=== PATIENT | male | born 1960 | race Caucasian/White ===

== ENCOUNTER 2016-09-08 17:33 | Emergency (ER) | payer BC ==
[2016-09-08] MEDS ORDERED: TORAdol 30 mg Injection IM ONE (17:50)
[2016-09-08 17:51] VITALS: BP 152/75; PULSE 76; O2SAT 99
[2016-09-08] MEDS ORDERED: Norflex 60 MG/2 ML IM ONE (17:51)
--- NOTE | 2016-09-08 17:53 | ERPHSYRPT ---
- History of Present Illness Time Seen by Provider: 09/08/16 17:52 Source: patient, family Exam Limitations: no limitations Patient Subjective Stated Complaint: pt states he was playing volleyball in [place] when he felt. something pop in his left lower leg. pt [place] is able to bear. weight on leg but only on the heel of his foot. Triage Nursing Assessment: pt alert warm and dry resp easy non labored. good pulses good. cap refill noted to extremity. Physician History: pt states he was playing volleyball in [place] when he felt something pop in his left lower leg. pt [place] is able to bear weight on leg but only on the heel of his foot. Method of Injury: fell Occurred: just prior to arrival Quality: constant Severity of Pain-Max: moderate Severity of Pain-Current: moderate Lower Extremities Pain: leg: left (calf muscle tenderness), ankle: left ( painful squeeze on achillis tendon left side) Allergies/Adverse Reactions: No Known Drug Allergies Allergy (Unverified 09/08/16 17:39) Hx Tetanus, Diphtheria Vaccination/Date Given: Yes Hx Influenza Vaccination/Date Given: No Hx Pneumococcal Vaccination/Date Given: No Immunizations Up to Date: Yes - Review of Systems Constitutional: No Symptoms Musculoskeletal: Fall, Joint Pain, Other (left calf muscle pain) - Past Medical History Pertinent Past Medical History: Yes Other Medical History: htn - Past Surgical History Past Surgical History: Yes Other Surgical History: neck,carpal tunnel bilateral wrist,nerve release on bilateral elbow. ,appy - Social History Smoking Status: Never smoker Exposure to second hand smoke: No Drug Use: none Patient Lives Alone: No - Nursing Vital Signs Nursing Vital Signs: Initial Vital Signs Temperature 98.0 F Temperature Source Oral Pulse Rate 76 Respiratory Rate 18 Blood Pressure [Right Arm] 152/75 - Physical Exam General Appearance: no apparent distress Legs Exam: left leg: limited range of motion (ankle area), soft tissue tenderness (calf muscles) Ankle Exam: left ankle: limited range of motion (pain ful range of movement), soft tissue tenderness Foot Exam: bilateral foot: non-tender Mental Status Exam: alert, oriented x 3, cooperative Skin Exam: normal color SpO2 Interpretation: normal SpO2: 99 Oxygen Delivery: Room Air - Course Nursing assessment & vital signs reviewed: Yes Ordered Tests: Medication Summary Discontinued Medications Generic Name Dose Route Start Last Admin Trade Name Freq PRN Reason Stop Dose Admin Ketorolac Tromethamine 60 mg 09/08/16 17:50 Toradol 30 Mg Injection IM 09/08/16 17:51 STAT ONE Orphenadrine Citrate 60 mg 09/08/16 17:51 Norflex 60 Mg/2 Ml IM 09/08/16 17:52 STAT ONE - Progress Progress: unchanged Counseled pt/family regarding: diagnosis, need for follow-up - Departure Time of Disposition: 18:02 Departure Disposition: Home Clinical Impression: Achilles tendinitis of left lower extremity Gastrocnemius strain, left Qualifiers: Encounter type: initial encounter Qualified Code(s): S86.112A - Strain of other muscle(s) and tendon(s) of posterior muscle group at lower leg level, left leg, initial encounter Condition: Stable Critical Care Time: No Referrals: DARYN CEDEÑO [Primary Care Provider] - Instructions: Calf Muscle Strain, Achilles Tendinopathy Forms: Work/School Release Form Prescriptions: Cyclobenzaprine HCl 10 mg PO TID #30 tablet Naproxen 375 mg [Naprosyn 375 mg] 375 mg PO Q8H #30 tablet
[2016-09-08] MEDS ORDERED: TORAdol 30 mg Injection ONE ×2 (18:02→18:03)
[2016-09-08] MEDS ORDERED: Norflex 60 MG/2 ML ONE (18:02)
== END 2016-09-08 18:29 | disposition home or self-care (01) ==
LOC: ED 17:33
DX: S86.112A Strain of other muscle(s) and tendon(s) of posterior muscle group at lower leg level, left leg, initial encounter (principal); M76.62 Achilles tendinitis, left leg; X50.0XXA Overexertion from strenuous movement or load, initial encounter; Y93.68 Activity, volleyball (beach) (court)
CPT/HCPCS: 96372; 99284; J1885; J2360; L4386

== ENCOUNTER 2022-11-01 15:10 | Emergency (ER) | payer BC ==
--- NOTE | 2022-11-01 15:23 | ERPHSYRPT ---
- History of Present Illness Time Seen by Provider: 11/01/22 15:23 Source: patient Exam Limitations: no limitations Physician History: This is a 62-year-old, right-handed white male patient who was cutting shingles for roof and accidentally cut the volar aspect of his left forearm. Patient's tetanus status is up-to-date per his report. Timing/Duration: today Quality: painful Severity: mild Location: extremities (Volar aspect left forearm) Associated Symptoms: denies symptoms Allergies/Adverse Reactions: No Known Drug Allergies Allergy (Unverified 09/08/16 17:39) Hx Tetanus, Diphtheria Vaccination/Date Given: Yes Hx Influenza Vaccination/Date Given: No Hx Pneumococcal Vaccination/Date Given: No Travel Risk - International Travel Have you traveled outside of the country in past 3 weeks: No - Coronavirus Screening Are you exhibiting any of the following symptoms?: No Close contact with a COVID-19 positive Pt in past 14-21 Days: No - Review of Systems Constitutional: No Symptoms Eyes: No Symptoms Ears, Nose, & Throat: No Symptoms Respiratory: No Symptoms Cardiac: No Symptoms Abdominal/Gastrointestinal: No Symptoms Genitourinary Symptoms: No Symptoms Musculoskeletal: No Symptoms Skin: Other (Laceration volar aspect left forearm 1 cm.) Neurological: No Symptoms Psychological: No Symptoms Endocrine: No Symptoms Hematologic/Lymphatic: No Symptoms Immunological/Allergic: No Symptoms All Other Systems: Reviewed and Negative - Past Medical History Pertinent Past Medical History: Yes Neurological History: No Pertinent History Cardiac History: Hypertension Respiratory History: No Pertinent History Endocrine Medical History: No Pertinent History Musculoskeletal History: No Pertinent History Other Medical History: htn - Past Surgical History Past Surgical History: Yes Other Surgical History: neck,carpal tunnel bilateral wrist,nerve release on bilateral elbow. ,appy - Social History Smoking Status: Never smoker Exposure to second hand smoke: No Drug Use: none Patient Lives Alone: No - Nursing Vital Signs Nursing Vital Signs: Initial Vital Signs Temperature 97.2 F 11/01/22 15:36 Pulse Rate 79 11/01/22 15:36 Respiratory Rate 20 11/01/22 15:36 Blood Pressure 146/79 11/01/22 15:36 O2 Sat by Pulse Oximetry 99 11/01/22 15:36 Pain Scale Pain Intensity 2 - Physical Exam General Appearance: no apparent distress, alert Eye Exam: PERRL/EOMI, eyes nml inspection Ears, Nose, Throat Exam: normal ENT inspection, moist mucous membranes Neck Exam: normal inspection, non-tender, supple, full range of motion Respiratory Exam: normal breath sounds, lungs clear, airway intact, No chest tenderness, No respiratory distress Cardiovascular Exam: regular rate/rhythm, normal heart sounds, normal peripheral pulses Gastrointestinal/Abdomen Exam: soft, normal bowel sounds, No tenderness Rectal Exam: not done Back Exam: normal inspection, normal range of motion, CVA tenderness Extremity Exam: normal inspection, normal range of motion, pelvis stable Neurologic Exam: alert, oriented x 3, cooperative, registered nurse maternal child II-XII nml as tested, normal mood/affect, nml cerebellar function, nml station & gait, sensation nml Skin Exam: laceration (1 cm transverse oriented superficial laceration volar aspect left forearm no active bleeding. No foreign body patient is neurovascularly intact. Tendons are intact) SpO2 Interpretation: normal O2 Delivery: Room Air Procedures - Laceration/Wound Repair Left Volar Arm Time of Procedure: 15:55 Wound Location: Left, lower arm (Forearm) Wound Length (cm): 1 Wound's Depth, Shape: superficial, linear Wound Explored: clean (Wound explored to the base in a bloodless field no foreign body present) Irrigated: Yes Hibiclens Prep: Yes Wound Repaired With: Ganga (2 ganga placed.) Layer Closure?: No Progress: 11/01/22 16:04 No complications. Patient tolerated the procedure well. After closure of laceration, nursing cleaned and dried the site. Bacitracin ointment applied followed by nonstick bandage. - Course Nursing assessment & vital signs reviewed: Yes Ordered Tests: Medication Summary Discontinued Medications Generic Name Dose Route Start Last Admin Trade Name Freq PRN Reason Stop Dose Admin Bacitracin Zinc 0.9 each 11/01/22 15:59 Bacitracin Packet 1 Each Pckt TP 11/01/22 16:00 STAT ONE - Progress Progress: improved, pain not gone completely, re-examined Progress Note: 11/01/22 16:04 This patient's medical issue is 1 of low complexity. Level complexity in the work-up performed is based on review of the patient's past medical history, review of the patient's medication list, review the patient's drug allergy list, history of present illness and physical findings on examination. No laboratory or radiographic studies necessary in this patient. We repaired the laceration with ganga. See procedure note. Counseled pt/family regarding: diagnosis, need for follow-up Medical Desision Making - Diagnostic Testing Diagnostic test were ordered, analyzed, and reviewed by me: No - Risk of complications Minimal Risk: Minimal risk of morbidity - Departure Departure Disposition: Home Clinical Impression: Laceration of left forearm Condition: Stable Critical Care Time: No Referrals: EMANI ALVAREZ MD [Primary Care Provider] - Follow up/PCP as directed Additional Instructions: Keep current dressing in place until the evening of 11/02/2022. At that time you may remove the dressing. Rinse the site daily thereafter with soapy water. Blot dry or use a social sciences department chair to dry the site. Reapply thin layer of antibiotic ointment of choice and cover with a Band-Aid. Staple removal in 7 to 10 days.
[2022-11-01 15:40] VITALS: BP 146/79; PULSE 79; RESP 20; TEMP 97.2; O2SAT 99
[2022-11-01] MEDS ORDERED: BACIGUENT PACKET TP ONE (15:59)
[2022-11-01] MEDS ORDERED: BACIGUENT PACKET ONE (16:07)
== END 2022-11-01 16:23 | disposition home or self-care (01) ==
LOC: ED 15:10
DX: S51.812A Laceration without foreign body of left forearm, initial encounter (principal); W26.0XXA Contact with knife, initial encounter; I10 Essential (primary) hypertension
CPT/HCPCS: 12001; 99281; A9270-GY

== ENCOUNTER 2023-10-14 10:54 | Emergency (ER) | payer MEDICARE, BC ==
[2023-10-14 11:53] VITALS: PULSE 77; RESP 16; TEMP 98.6
[2023-10-14] MEDS ORDERED: XYLOCAINE 1% HCL 20 ML MDV ONE (12:01)
[2023-10-14 12:07] VITALS: BP 130/63; O2SAT 98
--- NOTE | 2023-10-14 12:20 | ERPHSYRPT ---
- History of Present Illness Time Seen by Provider: 10/14/23 12:00 Source: patient Exam Limitations: no limitations Patient Subjective Stated Complaint: RIGHT ARM LACERATION Triage Nursing Assessment: PATIENT STATES HE WAS REACHING INTO A FURNACE WHILE WORKING ON IT AND CUT HISRIGHT LOWER ARM ON SOME SHEET METAL INSIDE THE FURNACE. Physician History: 63-year-old male presents to our ED with a laceration to his right forearm. Laceration measures 2 cm. Injury occurred just prior to arrival patient states he was working on a furnace and lacerated his arm on sheet-metal. Injury occurred just prior to arrival tetanus not up-to-date. Pain is minimal at this time. No other injuries reported. Symptoms are mild to moderate in intensity. No specific worsening or improving factors. No bony tenderness. Patient voices no other complaints or concerns at this time. Portions of this note were created with voice recognition technology. There may be grammatical, spelling, punctuation or sound alike errors Timing/Duration: today Severity: moderate Modifying Factors: Improves With: nothing Associated Symptoms: denies symptoms Allergies/Adverse Reactions: No Known Drug Allergies Allergy (Unverified 09/08/16 17:39) Hx Tetanus, Diphtheria Vaccination/Date Given: Yes Hx Influenza Vaccination/Date Given: No Hx Pneumococcal Vaccination/Date Given: No Travel Risk - International Travel Have you traveled outside of the country in past 3 weeks: No - Emerging Infectious Disease Are you exhibiting symptoms associated with any current EIDs: No - Review of Systems Constitutional: No Fever, No Chills Eyes: No Symptoms Ears, Nose, & Throat: No Symptoms Respiratory: No Cough, No Dyspnea Cardiac: No Chest Pain, No Edema, No Syncope Abdominal/Gastrointestinal: No Abdominal Pain, No Nausea, No Vomiting, No Diarrhea Genitourinary Symptoms: No Dysuria Musculoskeletal: No Symptoms, No Back Pain, No Neck Pain Skin: Other (Laceration), No Rash Neurological: Other (The involved right upper extremities neurovascular intact distally), No Dizziness, No Focal Weakness, No Sensory Changes Psychological: No Symptoms Endocrine: No Symptoms All Other Systems: Reviewed and Negative - Past Medical History Pertinent Past Medical History: Yes Neurological History: No Pertinent History Cardiac History: High Cholesterol, Hypertension Respiratory History: No Pertinent History Endocrine Medical History: No Pertinent History Musculoskeletal History: No Pertinent History Other Medical History: htn - Past Surgical History Past Surgical History: Yes Gastrointestinal: Appendectomy Other Surgical History: neck,carpal tunnel bilateral wrist,nerve release on bilateral elbow. ,appy - Social History Smoking Status: Former smoker Exposure to second hand smoke: No Drug Use: none Patient Lives Alone: No - Nursing Vital Signs Nursing Vital Signs: Initial Vital Signs Temperature 98.6 F 10/14/23 11:47 Pulse Rate 77 10/14/23 11:47 Respiratory Rate 16 10/14/23 11:47 Blood Pressure 161/71 10/14/23 11:47 O2 Sat by Pulse Oximetry 97 10/14/23 11:47 Pain Scale Pain Intensity 0 - Physical Exam General Appearance: no apparent distress, alert Eye Exam: PERRL/EOMI, eyes nml inspection Ears, Nose, Throat Exam: normal ENT inspection, moist mucous membranes Neck Exam: normal inspection, non-tender, supple, full range of motion Respiratory Exam: normal breath sounds, lungs clear, airway intact, No respiratory distress Cardiovascular Exam: regular rate/rhythm, normal heart sounds, normal peripheral pulses Gastrointestinal/Abdomen Exam: soft, normal bowel sounds, No tenderness, No mass Back Exam: normal inspection, normal range of motion, No CVA tenderness, No vertebral tenderness Extremity Exam: normal inspection, normal range of motion, pelvis stable Neurologic Exam: alert, oriented x 3, cooperative, normal mood/affect, sensation nml, No motor deficits Skin Exam: normal color, warm, dry, No rash Lymphatic Exam: No adenopathy SpO2 Interpretation: normal SpO2: 98 O2 Delivery: Room Air Procedures - Laceration/Wound Repair Right Arm Time of Procedure: 12:15 Wound Location: Right (Right proximal forearm dorsal aspect) Wound Length (cm): 2 Wound's Depth, Shape: superficial Wound Explored: clean Irrigated: Yes Hibiclens Prep: Yes Anesthesia: 1% Lidocaine Volume Anesthetic (ccs): 4 Wound Debrided: No debridement indicated Wound Repaired With: sutures Suture Size/Type: 4-0, ethilon Number of Sutures: 5 Layer Closure?: No Sterile Dressing Applied?: Yes Splint Applied?: No Sling Applied?: No Progress: 10/14/23 12:24 Patient neurovascular intact distally post procedure - Course Nursing assessment & vital signs reviewed: Yes Ordered Tests: Medication Summary Discontinued Medications Generic Name Dose Route Start Last Admin Trade Name Freq PRN Reason Stop Dose Admin Diphtheria/Tetanus/Acell Pertussis 0.5 ml 10/14/23 12:19 Tdap --Diph,Pertuss(Acell),Tet Vac/Pf 0.5 Ml Vial IM 10/14/23 12:20 .ONCE ONE Lidocaine HCl Confirm 10/14/23 12:01 Lidocaine Hcl 1% 20 Ml Mdv 20 Ml Ml Administered 10/14/23 12:02 Dose 4 ml .ROUTE .STK-MED ONE - Progress Progress: improved Progress Note: 63-year-old male presents to emergency department for evaluation and treatment of a laceration to his right forearm proximal one third dorsal aspect. Injury occurred just prior to arrival while working on a furnace. Physical exam reveals a 2 cm laceration. The laceration is relatively superficial. The involved extremities neurovascular tact distally compartments are soft cap refill less than 2 seconds. The wound is not contaminated. The wound was repaired with 5 simple interrupted suture using 4-0 Ethilon. The area was anesthetized using 4 cc of 1% lidocaine no epinephrine. Patient tolerated procedure well. Patient neurovascular tact distally post procedure. Sutures are to be removed in 1 week's time. Patient to follow-up with his primary care doctor within 48 hours for evaluation. No indication for antibiotics. Patient's tetanus was not up-to-date. Patient received Adacel IM injection today as a tetanus update. Patient voices no other complaints or concerns at this time. Portions of this note were created with voice recognition technology. There may be grammatical, spelling, punctuation or sound alike errors Complexity of problem addressed is moderate acute complicated. No critical care time. Complex of data reviewed and analyzed is none. No specialized testing ordered. Diagnosis made based on history and physical exam. Risk of complication and or risk of morbidity/mortality patient management is low. Vital stable. Time spent to discharge patient is approximately 15 minutes. Plan of care established for shared decision making. No social determinants of health present impede follow-up. Portions of this note were created with voice recognition technology. There may be grammatical, spelling, punctuation or sound alike errors 10/14/23 12:24 Counseled pt/family regarding: diagnosis, need for follow-up, rad results - Departure Departure Disposition: Home Clinical Impression: Laceration Condition: Stable Critical Care Time: No Referrals: EMANI ALVAREZ MD [Primary Care Provider] - Follow up/PCP as directed Additional Instructions: Discharge/Care Plan GWYNCALVINJUVE LOWE was seen on 10/14/23 in the Emergency Room. The patient was counseled regarding Diagnosis,Lab results, Imaging studies, need for follow up and when to return to the Emergency Room. Prescriptions given: Discharge Note I have spoken with the patient and/or caregivers. I have explained the patient's condition, diagnosis and treatment plan based on the information available to me at this time. I have answered the patient's and/or caregiver's questions and addressed any concerns. The patient and/or caregivers have as good understanding of the patient's diagnosis, condition and treatment plan as can be expected at this point. The vital signs have been stable. The patient's condition is stable and appropriate for discharge from the emergency department. The patient will pursue further outpatient evaluation with the primary care physician or other designated or consulting physician as outlined in the discharge instructions. The patient and/or caregivers are agreeable to this plan of care and follow-up instructions have been explained in detail. The patient and/or caregivers have received these instruction. The patient/and or caregivers are aware that any significant change in condition or worsening of symptoms should prompt an immediate return to this or the closest emergency department or call 911.
[2023-10-14] MEDS ORDERED: Adacel Vial IM ONE (12:24)
[2023-10-14] MEDS: Adacel Vial IM ONE (12:28)
== END 2023-10-14 12:37 | disposition home or self-care (01) ==
LOC: ED 10:54
DX: S51.811A Laceration without foreign body of right forearm, initial encounter (principal); W26.8XXA Contact with other sharp object(s), not elsewhere classified, initial encounter; E78.5 Hyperlipidemia, unspecified; I10 Essential (primary) hypertension; Z23 Encounter for immunization
CPT/HCPCS: 12001; 90471; 90715; 99282